=== PATIENT | female | born 1940 ===

== ENCOUNTER 2017-06-09 10:21 | Observation (INO) | payer OTHER ==
--- NOTE | 2017-06-09 11:54 | C.PDOC ---
History Of Present Illness 77 y/o female presents to emergency department with complaint of intermittent chest pain, described as left sided, for the past 4 days. Patient also states she has been having a frontal headache for 4 days. Notes that she was seen at the clinic today for elevated BP and headache, and was sent to the ER for further evaluation. On arrival, patient reports she currently has no pain. Otherwise, denies trauma, fever, rash, SOB, nausea, vomiting, abdominal pain, leg pain or swelling, recent travel. Time Seen by Provider: 06/09/17 11:36 Chief Complaint (Nursing): Chest Pain History Per: Patient History/Exam Limitations: no limitations Onset/Duration Of Symptoms: Days (4) Current Symptoms Are (Timing): Gone Pain Scale Rating Of: 0 Quality: "Pain" Associated Symptoms: denies: Nausea, Diaphoresis Exacerbating Factors: None Recent travel outside of the [place]: No Past Medical History Reviewed: Historical Data, Nursing Documentation, Vital Signs Vital Signs: Last Vital Signs Temp 97.6 F 06/09/17 10:30 Pulse 61 06/09/17 18:44 Resp 20 06/09/17 18:44 BP 143/60 06/09/17 18:44 Pulse Ox 98 06/09/17 18:44 - Medical History PMH: HTN Family History: States: Unknown Family Hx - Social History Hx Tobacco Use: No Hx Alcohol Use: No Hx Substance Use: No - Immunization History Hx Tetanus Toxoid Vaccination: No Hx Influenza Vaccination: No Hx Pneumococcal Vaccination: No Review Of Systems Except As Marked, All Systems Reviewed And Found Negative. Constitutional: Negative for: Fever, Chills ENT: Negative for: Throat Pain Cardiovascular: Positive for: Chest Pain (resolved). Negative for: Palpitations Respiratory: Negative for: Cough, Shortness of Breath, Wheezing Gastrointestinal: Negative for: Nausea, Vomiting, Abdominal Pain Skin: Negative for: Rash Neurological: Positive for: Headache. Negative for: Dizziness Physical Exam - Physical Exam Appears: Non-toxic, No Acute Distress Skin: Normal Color, Warm, Dry, No Rash Head: Atraumatic, Normacephalic Eye(s): bilateral: Normal Inspection, PERRL, EOMI Ear(s): Bilateral: Normal Nose: Normal Oral Mucosa: Moist Chest: Symmetrical, No Tenderness Cardiovascular: Rhythm Regular, No Murmur Respiratory: Normal Breath Sounds, No Rales, No Rhonchi, No Wheezing Gastrointestinal/Abdominal: Soft, No Tenderness, No Guarding, No Rebound Back: Normal Inspection Extremity: Normal ROM, Capillary Refill (< 2 sec.) Neurological/Psych: Oriented x3, Normal Speech, Normal Cognition ED Course And Treatment - Laboratory Results Result Diagrams: 06/09/17 12:22 06/09/17 12:22 ECG: Interpreted By Me ECG Rhythm: Sinus Rhythm ECG Interpretation: Normal Interpretation Of ECG: RBBB Rate From EC (bpm) O2 Sat by Pulse Oximetry: 99 (RA) Pulse Ox Interpretation: Normal - Radiology CXR: Interpreted by Me CXR Interpretation: Yes: No Acute Disease. No: Infiltrates Progress Note: EKG, CxR, bloodwork ordered. Treated with Aspirin 324 mg. Medical Decision Making Medical Decision Making: Case discussed with Dr. Magana, agrees to accept patient for chest pain and rule out ACS to tele-obs. Disposition - Disposition Disposition: HOSPITALIZED Disposition Time: 13:00 Condition: FAIR - Clinical Impression Clinical Impression: Chest pain - PA / MANAGER PROGRAMMING / Resident Statement MD/DO has reviewed & agrees with the documentation as recorded. - Scribe Statement The provider has reviewed the documentation as recorded by the Scribe Bernabe Dougherty All medical record entries made by the Carlos A were at my direction and personally dictated by me. I have reviewed the chart and agree that the record accurately reflects my personal performance of the history, physical exam, medical decision making, and the department course for this patient. I have also personally directed, reviewed, and agree with the discharge instructions and disposition.
[2017-06-09 12:35] LABS: BASO % 0.8 % (0.0-2.0); EOS % 0.4 % (0.0-4.0); HEMATOCRIT 38.5 % (34.0-47.0); LYMPH # 2.1 K/uL (1.0-4.3); LYMPH % 37.7 % (20.0-40.0); MEAN CELL VOLUME 86.6 fL (81.0-99.0); MEAN CORPUSCULAR HEMOGLOBIN 28.9 pg (27.0-31.0); MEAN CORPUSCULAR HGB CONC 33.4 g/dL (33.0-37.0); MEAN PLATELET VOLUME 8.2 fL (7.2-11.7); MONO # 0.5 K/uL (0.0-0.8); MONO % 9.8 % (0.0-10.0); NRBC % 0.4 % (0.0-2.0); RED CELL DISTRIBUTION WIDTH 14.5 % (11.5-14.5); WHITE BLOOD COUNT 5.6 K/uL (4.8-10.8)
--- NOTE | 2017-06-09 12:38 | RAD ---
HISTORY: chest pain COMPARISON: None available. TECHNIQUE: Chest, one view. FINDINGS: LUNGS: Mild biapical pleural thickening. No focal consolidation. Please note that chest x-ray has limited sensitivity for the detection of pulmonary masses. PLEURA: No significant pleural effusion identified. No definite pneumothorax . CARDIOVASCULAR: Heart size appears within normal limits. Atherosclerotic calcifications of the aorta. OSSEOUS STRUCTURES: Degenerative changes. VISUALIZED UPPER ABDOMEN: Unremarkable. OTHER FINDINGS: None. IMPRESSION: Biapical pleural thickening. No focal consolidation, significant pleural effusion, or definite pneumothorax identified.
[2017-06-09 12:44] LABS: CHLORIDE 95 mmol/L (98-107); POTASSIUM 4.1 mmol/L (3.6-5.2); SODIUM 143 mmol/L (132-148)
[2017-06-09 12:47] LABS: ALB/GLOB RATIO 1.3 (1.0-2.1); ALKALINE PHOSPHATASE 66 U/L (38-126); ALT/SGPT 34 U/L (9-52); AST/SGOT 25 U/L (14-36); BLOOD UREA NITROGEN 16 mg/dL (7-17); CARBON DIOXIDE 33 mmol/L (22-30); GFR AFRICAN-AMERICAN > 60; GLUCOSE,RANDOM 104 mg/dL (65-105); TOTAL PROTEIN 8.5 g/dL (6.3-8.3)
[2017-06-09 12:48] LABS: CALCIUM 10.1 mg/dl (8.6-10.4)
--- NOTE | 2017-06-09 14:41 | CP.PCM.HP ---
<Winsome Alamo - Last Filed: 06/09/17 16:25> History of Present Illness - History of Present Illness History of Present Illness: Medicine Note for Dr. Magana CC: headache and chest pain HPI: 77F with PMHx of HTN, HLD, DM presents to the ED after being sent up from the clinic, where she reported chest pain and headache. Patient reports she started to have a headache on which was intermittent, bandlike ( occipital) and it would radiate down her neck. When her headache would get at it 's worst, she would experience sharp like left sided chest pain. The chest pain would last 3-5 minutes without any intervention. Denied fever, chills, headache , SOB, chest pain, abdominal pain, n/v/d/c, or urinary symptoms. PMHx: HTN, HLD, DM PSHx: Meds: HCTZ 25mg PO daily, Potassium 20mg PO daily, crestor and a diabetic medication All: NKDA SHx: Denied any tobacco, ETOH, or illicit drug use FHx: Denied PMD: Dr. Hurtaod Present on Admission - Present on Admission Any Indicators Present on Admission: No Past Patient History - Past Social History Smoking Status: Never Smoked - CARDIAC Hx Hypertension: Yes - ENDOCRINE/METABOLIC Hx Diabetes Mellitus Type 2: Yes - PSYCHIATRIC Hx Substance Use: No - SURGICAL HISTORY Hx Surgeries: Yes Hx Section: Yes - ANESTHESIA Hx Anesthesia: Yes Hx Anesthesia Reactions: No Meds Allergies/Adverse Reactions: Allergies Allergy/AdvReac Type Severity Reaction Status Date / Time No Known Allergies Allergy Verified 06/22/14 09:35 Physical Exam - Constitutional Appears: No Acute Distress - Head Exam Head Exam: NORMAL INSPECTION, NORMOCEPHALIC - Eye Exam Eye Exam: EOMI, Normal appearance, PERRL Pupil Exam: NORMAL ACCOMODATION - ENT Exam ENT Exam: Mucous Membranes Moist - Neck Exam Neck exam: Positive for: Normal Inspection - Respiratory Exam Respiratory Exam: Clear to Auscultation Bilateral, NORMAL BREATHING PATTERN. absent: Decreased Breath Sounds, Wheezes - Cardiovascular Exam Cardiovascular Exam: REGULAR RHYTHM, RRR, +S1, +S2. absent: Diastolic murmur, Systolic Murmur - GI/Abdominal Exam GI & Abdominal Exam: Normal Bowel Sounds, Soft. absent: Distended, Tenderness - Extremities Exam Extremities exam: Positive for: normal inspection, pedal pulses present. Negative for: pedal edema, tenderness - Back Exam Back exam: NORMAL INSPECTION. absent: CVA tenderness (L), CVA tenderness (R) - Neurological Exam Neurological exam: Alert, CN II-XII Intact, Oriented x3 - Skin Skin Exam: Dry, Intact, Normal Color, Warm Results - Vital Signs Recent Vital Signs: Last Vital Signs Temp 97.6 F 06/09/17 10:30 Pulse 53 L 06/09/17 11:48 Resp 20 06/09/17 11:48 BP 164/57 H 06/09/17 11:48 Pulse Ox 99 06/09/17 14:03 - Labs Result Diagrams: 06/09/17 12:22 06/09/17 12:22 Labs: Laboratory Results - last 24 hr 06/09/17 06/09/17 06/09/17 12:22 12:22 12:22 WBC 5.6 RBC 4.44 Hgb 12.9 Hct 38.5 MCV 86.6 MCH 28.9 MCHC 33.4 RDW 14.5 Plt Count 240 MPV 8.2 Neut % (Auto) 51.3 Lymph % (Auto) 37.7 [place] % (Auto) 9.8 Eos % (Auto) 0.4 Baso % (Auto) 0.8 Neut # 2.9 Lymph # 2.1 [place] # 0.5 Eos # 0.0 Baso # 0.0 PT 11.2 INR 1.0 APTT 33 Sodium 143 Potassium 4.1 Chloride 95 L Carbon Dioxide 33 H Anion Gap 19 BUN 16 Creatinine 0.7 Est GFR ( Amer) > 60 Est GFR (Non-Af Amer) > 60 Random Glucose 104 Calcium 10.1 Total Bilirubin 1.0 AST 25 ALT 34 Alkaline Phosphatase 66 Troponin I < 0.0120 Total Protein 8.5 H Albumin 4.8 Globulin 3.7 Albumin/Globulin Ratio 1.3 Assessment & Plan - Assessment and Plan (Free Text) Plan: Chest pain R/O ACS Cardiology consulted -Dr. Spencer- help appreciated Initial EVE negative, EKG: RBBB ECHO 11/2016: LVEF 70%, mild LVD, mild pulm HTN F/U EVE and EKG x2 * ASA 81mg PO daily * HCTZ 25mg PO daily * Norvasc 5mg PO daily Headache * Head CT w/o contrast: No acute intracranial pathology identified. Hx Uncontrolled HTN * ECHO 11/2016: LVEF 70%, mild LVD, mild pulm HTN * Resumed home medication: HCTZ 25mg PO daily --> monitor potassium * Added Norvasc 5mg PO daily Hx DM HGA1C: 6.9 (03/2017) Accuchecks * ISS- low Hx HLD Lipid Panel on 03/2017: T, Chol: 237, LDL 151, HDL 49 * Crestor 5mg PO QHS Prophylactic Measures GI PPX: Protonix 40mg PO daily DVT PPX: Heparin [id number], SCDs Heart Healthy diet w/ carb consistent DW Dr. Izzy Alamo DO, PGY-1 <Deni Magana H - Last Filed: 06/09/17 18:32> Results - Vital Signs Recent Vital Signs: Last Vital Signs Temp 97.6 F 06/09/17 10:30 Pulse 56 L 06/09/17 16:29 Resp 22 06/09/17 16:29 BP 141/54 L 06/09/17 16:29 Pulse Ox 97 06/09/17 16:29 - Labs Result Diagrams: 06/09/17 12:22 06/09/17 12:22 Labs: Laboratory Results - last 24 hr 06/09/17 06/09/17 06/09/17 12:22 12:22 12:22 WBC 5.6 RBC 4.44 Hgb 12.9 Hct 38.5 MCV 86.6 MCH 28.9 MCHC 33.4 RDW 14.5 Plt Count 240 MPV 8.2 Neut % (Auto) 51.3 Lymph % (Auto) 37.7 [place] % (Auto) 9.8 Eos % (Auto) 0.4 Baso % (Auto) 0.8 Neut # 2.9 Lymph # 2.1 [place] # 0.5 Eos # 0.0 Baso # 0.0 PT 11.2 INR 1.0 APTT 33 Sodium 143 Potassium 4.1 Chloride 95 L Carbon Dioxide 33 H Anion Gap 19 BUN 16 Creatinine 0.7 Est GFR ( Amer) > 60 Est GFR (Non-Af Amer) > 60 POC Glucose (mg/dL) Random Glucose 104 Calcium 10.1 Total Bilirubin 1.0 AST 25 ALT 34 Alkaline Phosphatase 66 Troponin I < 0.0120 Total Protein 8.5 H Albumin 4.8 Globulin 3.7 Albumin/Globulin Ratio 1.3 06/09/17 06/09/17 16:54 17:05 WBC RBC Hgb Hct MCV MCH MCHC RDW Plt Count MPV Neut % (Auto) Lymph % (Auto) [place] % (Auto) Eos % (Auto) Baso % (Auto) Neut # Lymph # [place] # Eos # Baso # PT INR APTT Sodium Potassium Chloride Carbon Dioxide Anion Gap BUN Creatinine Est GFR ( Amer) Est GFR (Non-Af Amer) POC Glucose (mg/dL) 191 H 204 H Random Glucose Calcium Total Bilirubin AST ALT Alkaline Phosphatase Troponin I Total Protein Albumin Globulin Albumin/Globulin Ratio Attending/Attestation - Attestation I have personally seen and examined this patient.: Yes I have fully participated in the care of the patient.: Yes I have reviewed all pertinent clinical information: Yes Notes (Text): 06/09/17 18:27 Medical Attending: Patient was seen and examined by me. Agree with the above note by the resident. The patient was reporting chest pain, however also of note is that she ran out of her medication due to cost and has been reporting headaches as well. It might be that she is having episodes of hypertensive urgency that are causing these headaches as well as chest pain. Will check additional troponins, also restart BP medications as well. There is a LBBB om EKG, however when compared to an old EKG she has had this for several years now. Also because of the retrosternal like complaints and also the elevated BP readings, will also check a CT of the chest with contrast to assess for potential anursym as well. thank you Deni Magana
--- NOTE | 2017-06-09 16:11 | CT ---
PROCEDURE: CT HEAD WITHOUT CONTRAST. HISTORY: headache x 4 days COMPARISON: Noncontrast head CT performed 10/25/15 TECHNIQUE: Axial computed tomography images were obtained through the head/brain without intravenous contrast. Radiation dose: Total exam DLP = 914.41 mGy-cm. This CT exam was performed using one or more of the following dose reduction techniques: Automated exposure control, adjustment of the mA and/or kV according to patient size, and/or use of iterative reconstruction technique. FINDINGS: HEMORRHAGE: No intracranial hemorrhage. BRAIN: No mass effect or edema. Intracranial atherosclerosis. Scattered periventricular and subcortical white matter hypodensities, which are nonspecific, but often seen with chronic microvascular ischemic disease. Please note that MRI with diffusion imaging is more sensitive in the detection of acute ischemic event. VENTRICLES: No hydrocephalus. CALVARIUM: Unremarkable. PARANASAL SINUSES: Unremarkable as visualized. No significant inflammatory changes. MASTOID AIR CELLS: Unremarkable as visualized. No inflammatory changes. OTHER FINDINGS: None. IMPRESSION: No acute intracranial pathology identified.
[2017-06-09] MEDS: (Novolin R) Insulin Human Regular 100 units/ml vial SC SCH ×2 (17:08→22:35)
[2017-06-09] MEDS ORDERED: (Novolin R) Insulin Human Regular 100 units/ml vial ONE (18:34)
[2017-06-09 21:13] VITALS: RESP 20
[2017-06-09] MEDS ORDERED: Rosuvastatin Calcium 2.5 mg Tab PO SCH (22:00)
[2017-06-10 06:27] LABS: BASO % 0.5 % (0.0-2.0); EOS % 0.1 % (0.0-4.0); HEMATOCRIT 35.9 % (34.0-47.0); LYMPH # 2.2 K/uL (1.0-4.3); LYMPH % 51.7 % (20.0-40.0); MEAN CELL VOLUME 86.1 fL (81.0-99.0); MEAN CORPUSCULAR HGB CONC 33.6 g/dL (33.0-37.0); MEAN PLATELET VOLUME 7.8 fL (7.2-11.7); MONO # 0.5 K/uL (0.0-0.8); MONO % 11.9 % (0.0-10.0); NRBC % 0.1 % (0.0-2.0); RED CELL DISTRIBUTION WIDTH 14.3 % (11.5-14.5); WHITE BLOOD COUNT 4.3 K/uL (4.8-10.8)
[2017-06-10 06:31] LABS: CHLORIDE 95 mmol/L (98-107); POTASSIUM 3.6 mmol/L (3.6-5.2); SODIUM 142 mmol/L (132-148)
[2017-06-10 06:33] LABS: ALB/GLOB RATIO 1.1 (1.0-2.1); AST/SGOT 25 U/L (14-36); BILIRUBIN,TOTAL 0.8 mg/dL (0.2-1.3); BLOOD UREA NITROGEN 14 mg/dL (7-17); CARBON DIOXIDE 33 mmol/L (22-30); CHOLESTEROL 162 mg/dL (0-199); GFR AFRICAN-AMERICAN > 60; TOTAL PROTEIN 8.3 g/dL (6.3-8.3)
[2017-06-10 06:34] LABS: ALKALINE PHOSPHATASE 56 U/L (38-126); ALT/SGPT 29 U/L (9-52); CALCIUM 9.9 mg/dl (8.6-10.4); GLUCOSE,RANDOM 124 mg/dL (65-105); MAGNESIUM 1.8 mg/dL (1.6-2.3); PHOSPHOROUS 4.9 mg/dL (2.5-4.5)
[2017-06-10] MEDS: (Novolin R) Insulin Human Regular 100 units/ml vial SC SCH ×2 (07:50→12:20)
[2017-06-10] MEDS ORDERED: Aminophylline 25 mg/ml Inj ONE (08:08)
[2017-06-10] MEDS ORDERED: Pneumococcal 23-Valent Vaccine IM ONE ×2 (10:00→17:09)
[2017-06-10] MEDS ORDERED: Pantoprazole 40 mg EC Tab PO SCH (10:00)
[2017-06-10] MEDS ORDERED: Influenza Vaccine 60 mcg/0.5 mL SYR (4YR UP) IM ONE ×2 (10:00→17:08)
--- NOTE | 2017-06-10 13:47 | CP.PCM.CON ---
History of Present Illness - History of Present Illness History of Present Illness: 77 y/o female presents to emergency department with complaint of intermittent chest pain, described as left sided, for the past 4 days. Patient also states she has been having a frontal headache for 4 days. Notes that she was seen at the clinic for elevated BP and headache, and was sent to the ER for further evaluation. On arrival, patient reports she currently has no pain. Otherwise, denies trauma, fever, rash, SOB, nausea, vomiting, abdominal pain, leg pain or swelling, recent travel. Review of Systems - Constitutional Constitutional: As Per HPI, Headache. absent: Anorexia, Chills, Daytime Sleepiness, Excessive Sweating, Fatigue, Fever, Frequent Falls, Increased Appetite, Lethargy, Malaise, Night Sweats, Snoring, Sleep Apnea, Weight Gain, Weight Loss, Weakness, Other - EENT Eyes: As Per HPI. absent: Blind Spots, Blurred Vision, Change in Vision, Decreased Night Vision, Diplopia, Discharge, Dry Eye, Exophthalmos, Floaters, Irritation, Itchy Eyes, Loss of Peripheral Vision, Pain, Photophobia, Requires Corrective Lenses, Sees Flashes, Spots in Vision, Tunnel Vision, Other Visual Disturbances, Loss of Vision, Other Ears: As Per HPI. absent: Decreased Hearing, Ear Discharge, Ear Pain, Tinnitus , Abnormal Hearing, Disequilibrium, Dizziness, Other Nose/Mouth/Throat: As Per HPI. absent: Epistaxis, Nasal Congestion, Nasal Discharge, Nasal Obstruction, Nasal Trauma, Nose Pain, Post Nasal Drip, Sinus Pain, Sinus Pressure, Bleeding Gums, Change in Voice, Dental Pain, Dry Mouth, Dysphagia, Halitosis, Hoarsness, Lip Swelling, Mouth Lesions, Mouth Pain, Odynophagia, Sore Throat, Throat Swelling, Tongue Swelling, Facial Pain, Neck Pain, Neck Mass, Other - Breasts Breasts: As Per HPI. absent: Change in Shape, Mass, Pain, Nipple Discharge, Nipple Inversion, Skin Changes, Swelling, Other - Cardiovascular Cardiovascular: As Per HPI, Chest Pain. absent: Acrocyanosis, Chest Pain at Rest, Chest Pain with Activity, Claudication, Diaphoresis, Dyspnea, Dyspnea on Exertion, Edema, Irregular Heart Rhythm, Pain Radiating to Arm/Neck/Jaw, Leg Edema, Leg Ulcers, Lightheadedness, Orthopnea, Palpitations, Paroxysmal Nocturnal Dyspnea, Pedal Edema, Radiating Pain, Rapid Heart Rate, Slow Heart Rate, Syncope, Other - Respiratory Respiratory: As Per HPI. absent: Cough, Dyspnea, Hemoptysis, Dyspnea on Exertion, Wheezing, Snoring, Stridor, Pain on Inspiration, Chest Congestion, Excessive Mucous Production, Change in Mucous Color, Pain with Coughing, Other - Gastrointestinal Gastrointestinal: As Per HPI. absent: Abdominal Pain, Belching, Bloating, Change in Bowel Habits, Change in Stool Character, Coffee Ground Emesis, Constipation, Cramping, Diarrhea, Dyspepsia, Dysphagia, Early Satiety, Excessive Flatus, Fecal Incontinence, Heartburn, Hematemesis, Hematochezia, Loose Stools, Melena, Nausea, Odynophagia, Temesmus, Vomiting, Other - Genitourinary Genitourinary: As Per HPI. absent: Change in Urinary Stream, Difficulty Urinating, Dysuria, Flank Pain, Hematuria, Pyuria, Nocturia, Urinary Incontinence, Urinary Frequency, Urinary Hesitance, Urinary Urgency, Voiding Freq/Small Amts, Freq UTI, Hx Renal/Bladder Calculi, Hx /Renal Surgery, Bladder Distension, Other - Reproductive: Female Reproductive:Female: absent: As Per HPI, Amenorrhea, Amenorrhea/ Control, Currently Menstual, Cycle <21 Days, Cycle >35 Days, Cycle Variable, Menses 1-7 Days, Menses >/= 8 Days, Menses Variable, Cycle > 4 Weeks Between, No Menses for 6 Months, Heavy Menses, Light Menses, Normal Menses, Spotting Between Cycles , S/P Hysterectomy, Menopausal, Post Menopausal, Premenarche, Abnormal Vaginal Bleeding, Dysmenorrhea, Dyspareunia, Genital Lesions, Genital Pruritis, Pelvic Pain, Prolapse Symptoms, Sexual Dysfunction, Vaginal Discharge, Vaginal Dryness , Vaginal Odor, Vaginal Pruritis, Other - Menstruation Menstruation: As Per HPI. absent: Amenorrhea, Amenorrhea/ Control, Currently Menstual, Cycle <21 Days, Cycle >35 Days, Cycle Variable, Menses 1-7 Days, Menses >/= 8 Days, Menses Variable, Cycle > 4 Weeks Between, No Menses for 6 Months, Heavy Menses, Light Menses, Normal Menses, Spotting Between Cycles , S/P Hysterectomy, Menopausal, Post Menopausal, Premenarche, Abnormal Vaginal Bleeding, Dysmenorrhea, Other - Musculoskeletal Musculoskeletal: As Per HPI. absent: Abnormal Gait, Arthralgias, Atrophy, Back Pain, Deformity, Joint Swelling, Limited Range of Motion, Loss of Height, Muscle Cramps, Muscle Weakness, Myalgias, Neck Pain, Numbness, Radiating Pain into Limb, Stiffness, Tingling, Other - Integumentary Integumentary: As Per HPI. absent: Acne, Alopecia, Bleeding Lesions, Change in Hair, Change in Nails, Change in Pigmentation, Changing Lesions, Dry Skin, Erythema, Furuncle, Hirsutism, Lesions, New Lesions, Non-Healing Lesions, Photosensitivity, Pruritus, Rash, Skin Pain, Skin Ulcer, Sores, Striae, Swelling , Unusual Bruising, Wounds, Jaundice, Other - Neurological Neurological: As Per HPI. absent: Abnormal Gait, Abnormal Hearing, Abnormal Movements, Abnormal Speech, Behavioral Changes, Burning Sensations, Confusion, Convulsions, Disequilibrium, Dizziness, Numbness, Focal Weakness, Frequent Falls , Headaches, Lack of Coordination, Loss of Vision, Memory Loss, Paresthesias, Radicular Pain, Restless Legs, Sensory Deficit, Syncope, Tingling, Tremor, Vertigo, Weakness, Other Visual Disturbances, Other - Psychiatric Psychiatric: As Per HPI. absent: Abnormal Sleep Pattern, Anhedonia, Anxiety, Auditory Hallucinations, Behavioral Changes, Change in Appetite, Change in Libido, Confusion, Depression, Difficulty Concentrating, Hallucinations, Homicidal Ideation, Hopelessness, Irritability, Memory Loss, Mood Swings, Panic Attacks, Paranoia, Suicidal Ideation, Visual Hallucinations, Tactile Hallucinations, Other - Endocrine Endocrine: As Per HPI. absent: Change in Body Appearance, Change in Libido, Cold Intolorance, Deepening of Voice, Excessive Sweating, Fatigue, Flushing, Heat Intolorance, Increase in Ring/Shoe/Hat Size, Palpitations, Polydipsia, Polyphagia, Polyuria, Other - Hematologic/Lymphatic Hematologic: absent: As Per HPI, Easy Bleeding, Easy Bruising, Lymphadenopathy, Other Past Patient History - Past Medical History & Family History Past Medical History?: Yes - Past Social History Smoking Status: Never Smoked Chewing Tobacco Use: No Cigar Use: No Alcohol: None Drugs: Denies Home Situation {Lives}: With Family Domestic Violence: Negative - CARDIAC Hx Hypertension: Yes - PULMONARY Hx Respiratory Disorders: No - NEUROLOGICAL Hx Neurological Disorder: No - HEENT Hx HEENT Problems: No - RENAL Hx Chronic Kidney Disease: No - ENDOCRINE/METABOLIC Hx Endocrine Disorders: Yes Hx Diabetes Mellitus Type 2: Yes - HEMATOLOGICAL/ONCOLOGICAL Hx Blood Disorders: No - MUSCULOSKELETAL/RHEUMATOLOGICAL Hx Falls: No - PSYCHIATRIC Hx Substance Use: No - SURGICAL HISTORY Hx Surgeries: Yes Hx Section: Yes - ANESTHESIA Hx Anesthesia: Yes Hx Anesthesia Reactions: No Meds Allergies/Adverse Reactions: Allergies Allergy/AdvReac Type Severity Reaction Status Date / Time No Known Allergies Allergy Verified 06/22/14 09:35 - Medications Medications: Current Medications Acetaminophen (Tylenol 325mg Tab) 650 mg PO Q6 PRN PRN Reason: Headache Last Admin: 06/09/17 21:19 Dose: 650 mg Amlodipine Besylate (Norvasc) 10 mg PO DAILY [facility] Last Admin: 06/10/17 10:26 Dose: 10 mg Aspirin (Aspirin Chewable) 81 mg PO DAILY [facility] Last Admin: 06/10/17 10:27 Dose: 81 mg Heparin Sodium (Porcine) (Heparin) 5,000 units SC Q12 [facility] Last Admin: 06/10/17 10:26 Dose: 5,000 units Hydrochlorothiazide (Hydrodiuril) 25 mg PO DAILY [facility] Last Admin: 06/10/17 10:26 Dose: 25 mg Insulin Human Regular (Novolin R) 0 unit SC ACHS [facility] PRN Reason: Protocol Last Admin: 06/10/17 12:20 Dose: Not Given Pantoprazole Sodium (Protonix Ec Tab) 40 mg PO DAILY [facility] Last Admin: 06/10/17 10:26 Dose: 40 mg Rosuvastatin Calcium (Crestor) 5 mg PO HS [facility] Last Admin: 06/09/17 22:02 Dose: 5 mg Physical Exam - Constitutional Appears: Well - Head Exam Head Exam: ATRAUMATIC, NORMAL INSPECTION, NORMOCEPHALIC - Eye Exam Eye Exam: EOMI, Normal appearance, PERRL Pupil Exam: NORMAL ACCOMODATION, PERRL - ENT Exam ENT Exam: Mucous Membranes Moist, Normal Exam - Neck Exam Neck exam: Positive for: Normal Inspection - Respiratory Exam Respiratory Exam: Clear to Auscultation Bilateral, NORMAL BREATHING PATTERN. absent: Accessory Muscle Use, Chest Wall Tenderness, Decreased Breath Sounds, Prolonged Expiratory Phase, Rales, Rhonchi, Wheezes, Respiratory Distress, Stridor - Cardiovascular Exam Cardiovascular Exam: REGULAR RHYTHM, +S1, +S2, Systolic Murmur. absent: Bradycardia, Tachycardia, Clicks, Diastolic murmur, Gallop, Irregular Rhythm, JVD, RRR, Rubs, +S4 - GI/Abdominal Exam GI & Abdominal Exam: Normal Bowel Sounds, Soft. absent: Bruit, Diminished Bowel Sounds, Distended, Firm, Guarding, Hernia, Hyperactive Bowel Sounds, Hypoactive Bowel Sounds, Mass, Organomegaly, Pulsatile Mass, Rebound, Rigid, Tenderness - Rectal Exam Rectal Exam: Deferred. absent: Black Stool, Bloody Stool, Hemorrhoids, Fecal Impaction - Extremities Exam Extremities exam: Positive for: normal inspection. Negative for: calf tenderness, full ROM, joint swelling, normal capillary refill, pedal edema, tenderness, pedal pulses present - Back Exam Back exam: NORMAL INSPECTION. absent: CVA tenderness (L), CVA tenderness (R), FULL ROM, muscle spasm, paraspinal tenderness, rash noted, tenderness, vertebral tenderness - Neurological Exam Neurological exam: Alert, CN II-XII Intact, Oriented x3, Reflexes Normal - Psychiatric Exam Psychiatric exam: Normal Affect, Normal Mood - Skin Skin Exam: Dry, Intact, Normal Color, Warm Results - Vital Signs Recent Vital Signs: Last Vital Signs Temp 97.9 F 06/10/17 08:00 Pulse 75 06/10/17 12:48 Resp 20 06/10/17 08:00 BP 120/69 06/10/17 08:00 Pulse Ox 96 06/10/17 12:48 - Labs Result Diagrams: 06/10/17 06:14 06/10/17 06:14 Labs: Laboratory Results - last 24 hr 06/09/17 06/09/17 06/09/17 16:54 17:05 20:24 WBC RBC Hgb Hct MCV MCH MCHC RDW Plt Count MPV Neut % (Auto) Lymph % (Auto) [place] % (Auto) Eos % (Auto) Baso % (Auto) Neut # Lymph # [place] # Eos # Baso # Sodium Potassium Chloride Carbon Dioxide Anion Gap BUN Creatinine Est GFR ( Amer) Est GFR (Non-Af Amer) POC Glucose (mg/dL) 191 H 204 H Random Glucose Calcium Phosphorus Magnesium Total Bilirubin AST ALT Alkaline Phosphatase Total Creatine Kinase 52 CK-MB (Mass) 0.90 Troponin I, Quant < 0.0120 Total Protein Albumin Globulin Albumin/Globulin Ratio Triglycerides Cholesterol LDL Cholesterol Direct HDL Cholesterol 06/09/17 06/10/17 06/10/17 22:30 06:14 06:14 WBC 4.3 L RBC 4.17 Hgb 12.1 Hct 35.9 MCV 86.1 MCH 29.0 MCHC 33.6 RDW 14.3 Plt Count 231 MPV 7.8 Neut % (Auto) 35.8 L Lymph % (Auto) 51.7 H [place] % (Auto) 11.9 H Eos % (Auto) 0.1 Baso % (Auto) 0.5 Neut # 1.6 L Lymph # 2.2 [place] # 0.5 Eos # 0.0 Baso # 0.0 Sodium 142 Potassium 3.6 Chloride 95 L Carbon Dioxide 33 H Anion Gap 18 BUN 14 Creatinine 0.8 Est GFR ( Amer) > 60 Est GFR (Non-Af Amer) > 60 POC Glucose (mg/dL) 87 Random Glucose 124 H Calcium 9.9 Phosphorus 4.9 H Magnesium 1.8 Total Bilirubin 0.8 AST 25 ALT 29 Alkaline Phosphatase 56 Total Creatine Kinase CK-MB (Mass) Troponin I, Quant Total Protein 8.3 Albumin 4.3 Globulin 4.0 H Albumin/Globulin Ratio 1.1 Triglycerides 95 D Cholesterol 162 LDL Cholesterol Direct 90 HDL Cholesterol 50 06/10/17 06/10/17 06:31 11:30 WBC RBC Hgb Hct MCV MCH MCHC RDW Plt Count MPV Neut % (Auto) Lymph % (Auto) [place] % (Auto) Eos % (Auto) Baso % (Auto) Neut # Lymph # [place] # Eos # Baso # Sodium Potassium Chloride Carbon Dioxide Anion Gap BUN Creatinine Est GFR ( Amer) Est GFR (Non-Af Amer) POC Glucose (mg/dL) 130 H 146 H Random Glucose Calcium Phosphorus Magnesium Total Bilirubin AST ALT Alkaline Phosphatase Total Creatine Kinase CK-MB (Mass) Troponin I, Quant Total Protein Albumin Globulin Albumin/Globulin Ratio Triglycerides Cholesterol LDL Cholesterol Direct HDL Cholesterol - EKG Data EKG Interpreted by: Myself EKG shows normal: Sinus rhythm Rate: Normal - Impressions Impression: [id number] Assessment & Plan (1) Diabetes Status: Acute (2) Dyslipidemia Status: Acute (3) Chest pain Status: Acute (4) Headache Status: Acute - Assessment and Plan (Free Text) Plan: PT HAD ECHO AND NUC ST. ECHO NML EF NUC NML WOULD CONSIDER ALTERNATE ETIOLOGY FOR CP CONTINUE AMLODIPINE 10MG DAILY. D/C ASA AND HCTZ
--- NOTE | 2017-06-10 14:17 | CP.PCM.DIS ---
<[place] - Last Filed: 06/10/17 14:13> Provider - Provider Date of Admission: 06/09/17 14:15 Attending physician: Deni Magana DO Consults: Cardio: Dr. Spencer Time Spent in preparation of Discharge (in minutes): 55 Hospital Course - Lab Results Lab Results: Most Recent Lab Values WBC 4.3 K/uL (4.8-10.8) L 06/10/17 06:14 RBC 4.17 Mil/uL (3.80-5.20) 06/10/17 06:14 Hgb 12.1 g/dL (11.0-16.0) 06/10/17 06:14 Hct 35.9 % (34.0-47.0) 06/10/17 06:14 MCV 86.1 fL (81.0-99.0) 06/10/17 06:14 MCH 29.0 pg (27.0-31.0) 06/10/17 06:14 MCHC 33.6 g/dL (33.0-37.0) 06/10/17 06:14 RDW 14.3 % (11.5-14.5) 06/10/17 06:14 Plt Count 231 K/uL (130-400) 06/10/17 06:14 MPV 7.8 fL (7.2-11.7) 06/10/17 06:14 Neut % (Auto) 35.8 % (50.0-75.0) L 06/10/17 06:14 Lymph % (Auto) 51.7 % (20.0-40.0) H 06/10/17 06:14 [place] % (Auto) 11.9 % (0.0-10.0) H 06/10/17 06:14 Eos % (Auto) 0.1 % (0.0-4.0) 06/10/17 06:14 Baso % (Auto) 0.5 % (0.0-2.0) 06/10/17 06:14 Neut # 1.6 K/uL (1.8-7.0) L 06/10/17 06:14 Lymph # 2.2 K/uL (1.0-4.3) 06/10/17 06:14 [place] # 0.5 K/uL (0.0-0.8) 06/10/17 06:14 Eos # 0.0 K/uL (0.0-0.7) 06/10/17 06:14 Baso # 0.0 K/uL (0.0-0.2) 06/10/17 06:14 PT 11.2 SECONDS (9.7-12.2) 06/09/17 12:22 INR 1.0 06/09/17 12:22 APTT 33 SECONDS (21-34) 06/09/17 12:22 Sodium 142 mmol/L (132-148) 06/10/17 06:14 Potassium 3.6 mmol/L (3.6-5.2) 06/10/17 06:14 Chloride 95 mmol/L (98-107) L 06/10/17 06:14 Carbon Dioxide 33 mmol/L (22-30) H 06/10/17 06:14 Anion Gap 18 (10-20) 06/10/17 06:14 BUN 14 mg/dL (7-17) 06/10/17 06:14 Creatinine 0.8 MG/DL (0.7-1.2) 06/10/17 06:14 Est GFR ( Amer) > 60 06/10/17 06:14 Est GFR (Non-Af Amer) > 60 06/10/17 06:14 POC Glucose (mg/dL) 146 mg/dL (65-110) H 06/10/17 11:30 Random Glucose 124 mg/dL (65-105) H 06/10/17 06:14 Calcium 9.9 mg/dl (8.6-10.4) 06/10/17 06:14 Phosphorus 4.9 mg/dL (2.5-4.5) H 06/10/17 06:14 Magnesium 1.8 mg/dL (1.6-2.3) 06/10/17 06:14 Total Bilirubin 0.8 mg/dL (0.2-1.3) 06/10/17 06:14 AST 25 U/L (14-36) 06/10/17 06:14 ALT 29 U/L (9-52) 06/10/17 06:14 Alkaline Phosphatase 56 U/L (38-126) 06/10/17 06:14 Total Creatine Kinase 52 U/L (30-135) 06/09/17 20:24 CK-MB (Mass) 0.90 ng/mL (0.0-3.38) 06/09/17 20:24 Troponin I < 0.0120 ng/mL (0.00-0.120) 06/09/17 12:22 Troponin I, Quant < 0.0120 ng/mL (0.00-0.120) 06/09/17 20:24 Total Protein 8.3 g/dL (6.3-8.3) 06/10/17 06:14 Albumin 4.3 g/dL (3.5-5.0) 06/10/17 06:14 Globulin 4.0 gm/dL (2.2-3.9) H 06/10/17 06:14 Albumin/Globulin Ratio 1.1 (1.0-2.1) 06/10/17 06:14 Triglycerides 95 mg/dL (0-149) D 06/10/17 06:14 Cholesterol 162 mg/dL (0-199) 06/10/17 06:14 LDL Cholesterol Direct 90 mg/dL (0-129) 06/10/17 06:14 HDL Cholesterol 50 mg/dL (30-70) 06/10/17 06:14 - Hospital Course Hospital Course: Upon Admission: CC: headache and chest pain HPI: 77F with PMHx of HTN, HLD, DM presents to the ED after being sent up from the clinic, where she reported chest pain and headache. Patient reports she started to have a headache on which was intermittent, bandlike ( occipital) and it would radiate down her neck. When her headache would get at it 's worst, she would experience sharp like left sided chest pain. The chest pain would last 3-5 minutes without any intervention. Denied fever, chills, headache , SOB, chest pain, abdominal pain, n/v/d/c, or urinary symptoms. PMHx: HTN, HLD, DM PSHx: Meds: HCTZ 25mg PO daily, Potassium 20mg PO daily, crestor and a diabetic medication All: NKDA SHx: Denied any tobacco, ETOH, or illicit drug use FHx: Denied PMD: Dr. Hurtado Throughout the Hospital Course: Patient was admitted for chest pain R/O ACS. Cardiology Dr. Spencer was consulted. ECHO and Nuclear study was done - normal. Patient is to continue Norvasc 10-mg PO daily. DC HCTZ and ASA. Etiology unlikely cardiac in nature, recommend patient to take ppi for GERD like symptoms. Chest pain R/O ACS Cardiology consulted -Dr. Spencer- help appreciated Initial EVE negative, EKG: RBBB ECHO 11/2016: LVEF 70%, mild LVD, mild pulm HTN F/U EVE and EKG x2 * ASA 81mg PO daily * HCTZ 25mg PO daily * Norvasc 5mg PO daily Headache * Head CT w/o contrast: No acute intracranial pathology identified. Hx Uncontrolled HTN * ECHO 11/2016: LVEF 70%, mild LVD, mild pulm HTN * Resumed home medication: HCTZ 25mg PO daily --> monitor potassium * Added Norvasc 5mg PO daily Hx DM HGA1C: 6.9 (03/2017) Accuchecks * ISS- low Hx HLD Lipid Panel on 03/2017: T, Chol: 237, LDL 151, HDL 49 * Crestor 5mg PO QHS This is a brief summary of the patient's hospital course, please review EMR for full record. Discharge Exam - Head Exam Head Exam: ATRAUMATIC, NORMAL INSPECTION, NORMOCEPHALIC - Additional Findings Additional findings: - Constitutional Appears: No Acute Distress - Head Exam Head Exam: NORMAL INSPECTION, NORMOCEPHALIC - Eye Exam Eye Exam: EOMI, Normal appearance, PERRL Pupil Exam: NORMAL ACCOMODATION - ENT Exam ENT Exam: Mucous Membranes Moist - Neck Exam Neck exam: Positive for: Normal Inspection - Respiratory Exam Respiratory Exam: Clear to Auscultation Bilateral, NORMAL BREATHING PATTERN. absent: Decreased Breath Sounds, Wheezes - Cardiovascular Exam Cardiovascular Exam: REGULAR RHYTHM, RRR, +S1, +S2. absent: Diastolic murmur, Systolic Murmur - GI/Abdominal Exam GI & Abdominal Exam: Normal Bowel Sounds, Soft. absent: Distended, Tenderness - Extremities Exam Extremities exam: Positive for: normal inspection, pedal pulses present. Negative for: pedal edema, tenderness - Back Exam Back exam: NORMAL INSPECTION. absent: CVA tenderness (L), CVA tenderness (R) - Neurological Exam Neurological exam: Alert, CN II-XII Intact, Oriented x3 - Skin Skin Exam: Dry, Intact, Normal Color, Warm Discharge Plan - Discharge Medications Prescriptions: amLODIPine [Norvasc] 10 mg PO DAILY #30 tab Pantoprazole [Protonix EC Tab] 40 mg PO DAILY #30 ect Rosuvastatin Calcium [Crestor] 5 mg PO HS #30 tab - Follow Up Plan Condition: GOOD Disposition: HOME/ ROUTINE Instructions: Amlodipine (By mouth), Pantoprazole (By mouth), Rosuvastatin (By mouth), Angina (DC), Chronic Hypertension (DC) Additional Instructions: Patient is to continue taking NORVASC 10mg by mouth DAILY (for your blood pressure), Crestor 5mg by mouth at night every night for your cholestorol, and Protonix 40mg by mouth daily to help with your gastritis, and please continue to take your medication for your diabetes. Please make an appointment within 1 week for the Clinic. Once at the clinic, ask for a refferal for cardiology so you can follow up with a Director Of Student Services. Please return to the emergency room if your symptoms worsen or return. El paciente debe continuar tomando NORVASC 10mg por la boca DIARIAMENTE (para vitale presin arterial), Crestor 5mg por la boca cada noche por vitale colestorol, y Protonix 40mg por la boca diariamente para ayudar con vitale gastritis, y por favor contine tomando vitale medicamento para vitale diabetes. Por favor, gabe muriel abdirahman dentro de 1 semana para la Clnica. Muriel vez en la clnica, pida un refferal para la cardiologa para que pueda hacer un seguimiento con un cardilogo. Por favor regrese a la joy de emergencias si patricia sntomas empeoran o regresan. Referrals: [facility] at [facility] [Outside] <Deni Magana - Last Filed: 06/10/17 14:51> Provider - Provider Date of Admission: 06/09/17 14:15 Attending physician: Deni Magana, DO Hospital Course - Lab Results Lab Results: Most Recent Lab Values WBC 4.3 K/uL (4.8-10.8) L 06/10/17 06:14 RBC 4.17 Mil/uL (3.80-5.20) 06/10/17 06:14 Hgb 12.1 g/dL (11.0-16.0) 06/10/17 06:14 Hct 35.9 % (34.0-47.0) 06/10/17 06:14 MCV 86.1 fL (81.0-99.0) 06/10/17 06:14 MCH 29.0 pg (27.0-31.0) 06/10/17 06:14 MCHC 33.6 g/dL (33.0-37.0) 06/10/17 06:14 RDW 14.3 % (11.5-14.5) 06/10/17 06:14 Plt Count 231 K/uL (130-400) 06/10/17 06:14 MPV 7.8 fL (7.2-11.7) 06/10/17 06:14 Neut % (Auto) 35.8 % (50.0-75.0) L 06/10/17 06:14 Lymph % (Auto) 51.7 % (20.0-40.0) H 06/10/17 06:14 [place] % (Auto) 11.9 % (0.0-10.0) H 06/10/17 06:14 Eos % (Auto) 0.1 % (0.0-4.0) 06/10/17 06:14 Baso % (Auto) 0.5 % (0.0-2.0) 06/10/17 06:14 Neut # 1.6 K/uL (1.8-7.0) L 06/10/17 06:14 Lymph # 2.2 K/uL (1.0-4.3) 06/10/17 06:14 [place] # 0.5 K/uL (0.0-0.8) 06/10/17 06:14 Eos # 0.0 K/uL (0.0-0.7) 06/10/17 06:14 Baso # 0.0 K/uL (0.0-0.2) 06/10/17 06:14 PT 11.2 SECONDS (9.7-12.2) 06/09/17 12:22 INR 1.0 06/09/17 12:22 APTT 33 SECONDS (21-34) 06/09/17 12:22 Sodium 142 mmol/L (132-148) 06/10/17 06:14 Potassium 3.6 mmol/L (3.6-5.2) 06/10/17 06:14 Chloride 95 mmol/L (98-107) L 06/10/17 06:14 Carbon Dioxide 33 mmol/L (22-30) H 06/10/17 06:14 Anion Gap 18 (10-20) 06/10/17 06:14 BUN 14 mg/dL (7-17) 06/10/17 06:14 Creatinine 0.8 MG/DL (0.7-1.2) 06/10/17 06:14 Est GFR ( Amer) > 60 06/10/17 06:14 Est GFR (Non-Af Amer) > 60 06/10/17 06:14 POC Glucose (mg/dL) 146 mg/dL (65-110) H 06/10/17 11:30 Random Glucose 124 mg/dL (65-105) H 06/10/17 06:14 Calcium 9.9 mg/dl (8.6-10.4) 06/10/17 06:14 Phosphorus 4.9 mg/dL (2.5-4.5) H 06/10/17 06:14 Magnesium 1.8 mg/dL (1.6-2.3) 06/10/17 06:14 Total Bilirubin 0.8 mg/dL (0.2-1.3) 06/10/17 06:14 AST 25 U/L (14-36) 06/10/17 06:14 ALT 29 U/L (9-52) 06/10/17 06:14 Alkaline Phosphatase 56 U/L (38-126) 06/10/17 06:14 Total Creatine Kinase 52 U/L (30-135) 06/09/17 20:24 CK-MB (Mass) 0.90 ng/mL (0.0-3.38) 06/09/17 20:24 Troponin I < 0.0120 ng/mL (0.00-0.120) 06/09/17 12:22 Troponin I, Quant < 0.0120 ng/mL (0.00-0.120) 06/09/17 20:24 Total Protein 8.3 g/dL (6.3-8.3) 06/10/17 06:14 Albumin 4.3 g/dL (3.5-5.0) 06/10/17 06:14 Globulin 4.0 gm/dL (2.2-3.9) H 06/10/17 06:14 Albumin/Globulin Ratio 1.1 (1.0-2.1) 06/10/17 06:14 Triglycerides 95 mg/dL (0-149) D 06/10/17 06:14 Cholesterol 162 mg/dL (0-199) 06/10/17 06:14 LDL Cholesterol Direct 90 mg/dL (0-129) 06/10/17 06:14 HDL Cholesterol 50 mg/dL (30-70) 06/10/17 06:14 Attending/Attestation - Attestation I have personally seen and examined this patient.: Yes I have fully participated in the care of the patient.: Yes I have reviewed all pertinent clinical information, including history, physical exam and plan: Yes Notes (Text): Medical Attending: Patient was seen and examined by me, agrees the above note by manager of medical. Her family members were present at bedside as well. The patient was okay with this. Today when we saw her she reported not having any chest pain, she denied having shortness of breath, denied having palpitations, denied having abdominal pain As mentioned previously we are concerned about the patient's blood pressure not being well controlled. When she first came in she had systolic numbers in the 180s. We suspect that these were related to the headaches as well as chest pressure the patient was reporting. Since then she's had 3 negative cardiac enzymes, she was also evaluated by cardiology and had a stress test done results of which were negative. Per cardiology the patient will be stopped taking hydrochlorothiazide and start taking Norvasc 10. thank you Deni Magana
[2017-06-10 15:26] VITALS: BP 128/78; PULSE 71; TEMP 97.8; O2SAT 98
--- NOTE | 2017-06-11 11:59 | CARD ---
APPROVED REPORT EKG Measurement Heart [id number] <Conclusion> Normal sinus rhythm Possible Left atrial enlargement Right bundle branch block Abnormal ECG
--- NOTE | 2017-06-11 12:21 | CARD ---
APPROVED REPORT EXAM: Two-dimensional and M-mode echocardiogram with Doppler and color Doppler. Other Information Quality : GoodRhythm : NSR INDICATION Chest Pain RISK FACTORS Hypertension Hyperlipidemia Diabetes 2D DIMENSIONS IVSd0.8 (0.7-1.1cm)LVDd3.9 (3.9-5.9cm) PWd0.9 (0.7-1.1cm)LVDs2.3 (2.5-4.0cm) FS (%) 39.8 %LVEF (%)71.1 (>50%) M-Mode DIMENSIONS Left Atrium (MM)3.79 (2.5-4.0cm)Aortic Root2.27 (2.2-3.7cm) Aortic Cusp Exc.1.45 (1.5-2.0cm) Mitral Valve MV E Snzpxuqs33.5cm/sMV A Vhrkkrsw78.0cm/sE/A ratio0.6 TDI E/Lateral E'0.0E/Medial E'0.0 Tricuspid Valve TR Peak Djnltcyw899rw/sTR Peak Gr.48wxTrWIGV99woQq <Conclusion> normal size la,lv & ra rv. normal lv wall motion,thickness & systolic function with lvef of 60-65%. lv diastolic dysfunciton grade one. normal aortic,mitral,tv 7 pv. trace mr,mild tr & pi with upper normal pulmonary systolic pressures of 35 mm of hg. no pericardial effusion. normal size aortic root & ivc. atrial septum is aneurysmal but no shunt seen.
--- NOTE | 2017-06-13 19:59 | CARD ---
APPROVED REPORT Protocol: LEXISCAN Test Type: LEXISCAN STRESS Test Indications: CP Target HR: 145 bpm Resting ECG: normal Resting Heart Rate: 73 bpm Resting Blood Pressure: 128/80mmHg submaximum (85%): 123 bpm TEST SUMMARY RNJOIXJVPUUWQC44:02..1.062/.0. PREINFSNHYPERV.05:[id number]/80.0. INFUSIONDOSE 100:[id number]/80.0. KALPVMFNM79:[id number]/80.0. PROCEDURE Pharmacologic stress testing was performed using 0.4mg per 5ml of regadenoson given intravenously over 7-10 seconds. Reversal agent aminophyline 125 mg, given intravenously for Headache. POST EXERCISE Reason for Termination: Protocol Completed Target HR: No Max HR: 80 bpm 80% of Maximum Predicted HR: 145 bpm Exercise duration: 00:30 min:sec, 0 Stage Exercise capacity: 1.0METs Max Blood Pressure: 130/80mmHg Blood Pressure response to exercise: normal resting BP - appropriate response Heart Rate response to exercise: appropriate Chest Pain: No, none Angina index: 0 Arrhythmia: No, none ST Change: No, none Deviation: 0 mm INTERPRETATION Stress EKG Conclusion: NEGATIVE LEXISCAN STRESS TEST NORMAL BP RESPONSE TO LEXISCAN NUCLEAR STUDIES TO BE READ SEPARATELY EXAM: Myocardial Perfusion REST/STRESS Imaging Protocol The imaging protocol used to acquire images was Rest Tc-99m/stress Tc-99m 1 day Rest Spect myocardial perfusion imaging was performed in supine position 40 minutes following the injection of 13.2 mCi of Tc-99 Myoview. Gated Stress Spect was performed 41 minutes after intravenous 33 mCi Tc-99 Myoview injection. The images were gated to evaluate regional wall motion and calculate ventricular ejection fraction.Images were reconstructed using backfilter projection method in short horizontal and verticle long axis. Spect slices were generated. RESTING DATA EDV41.57neZY3.10L/min ESV6.00mlMyocardial Mass84.00g Av. Heart Rate61.00bpm EF85.00% STRESS DATA EDV43.32vsVS4.30L/min ESV8.00mlMyocardial Mass87.00g EF81.00% Regional WT score at stress:1.00 Regional WM score at stress:0.00 Summed WT score at stress:5.00 Av. Heart Rate68.00bpmSummed WM score at stress:0.00 LV Perf. Quant 17 Seg. SSS0.00 17 Seg. SRS0.00 17 Seg. SDS0.00 Stress Defect Extent (% LAD)0.00Rest Defect Extent (% LAD)0.00Rev. Defect Extent (% LAD)0.00 Stress Defect Extent (% LCX)0.00Rest Defect Extent (% LCX)0.00Rev. Defect Extent (% LCX)0.00 Stress Defect Extent (% RCA)0.00Rest Defect Extent (% RCA)0.00Rev. Defect Extent (% RCA)0.00 Stress Defect Extent (% KULWINDER)0.00Rest Defect Extent (% KULWINDER)0.00Rev. Defect Extent (% KULWINDER)0.00 IMPRESSION Normal Myocardial Perfusion exercise stress study Left Ventricle LV Size/Shape: The left ventricle is normal size. LV Function:Left ventricle systolic function is normal. The Ejection Fraction is >70%. Regional Wall Motion:There is normal left ventricular wall motion. Metabolism/Perfusion Defects: There is no scan evidence of reversible ischemia noted. Conclusion 1. There is no scan evidence of reversible ischemia noted. 2. Left ventricle systolic function is normal. 3. The Ejection Fraction is >70%.
== END 2017-06-10 17:45 | disposition home or self-care (01) ==
LOC: C.ER 10:21 → C.9E 14:15 → C.5S 20:40
PROVIDERS: ADMIT Hospitalist; ATTEND Hospitalist
DX: I16.0 Hypertensive urgency (principal); E78.5 Hyperlipidemia, unspecified; E11.9 Type 2 diabetes mellitus without complications
CPT/HCPCS: 36415; 70450; 71010; 78452; 80053; 80061; 82948; 83735; 84100; 84484; 85025; 85610; 85730; 90471; 90674; 90732; 93005; 93017; 93306; 96372; 97162; 99285; A9502; G0378; G8978; G8979; J0280; J1644; J2785

== ENCOUNTER 2017-12-18 11:57 | Emergency (ER) | payer OTHER ==
[2017-12-18 11:57] VITALS: BMI 24.7
[2017-12-18 12:07] VITALS: RESP 18; O2SAT 99
[2017-12-18 12:35] LABS: BASO % 1.1 % (0.0-2.0); HEMOGLOBIN 11.7 g/dL (11.0-16.0); LYMPH # 2.4 K/uL (1.0-4.3); LYMPH % 53.9 % (20.0-40.0); MEAN CELL VOLUME 85.3 fL (81.0-99.0); MEAN CORPUSCULAR HEMOGLOBIN 28.4 pg (27.0-31.0); MEAN CORPUSCULAR HGB CONC 33.3 g/dL (33.0-37.0); MEAN PLATELET VOLUME 8.2 fL (7.2-11.7); MONO # 0.6 K/uL (0.0-0.8); MONO % 14.1 % (0.0-10.0); NEUT # 1.4 K/uL (1.8-7.0); NEUT % 30.9 % (50.0-75.0); NRBC % 0.1 % (0.0-2.0); RBC 4.13 Mil/uL (3.80-5.20); RED CELL DISTRIBUTION WIDTH 14.9 % (11.5-14.5); WHITE BLOOD COUNT 4.5 K/uL (4.8-10.8)
[2017-12-18 12:40] LABS: CALCIUM 8.8 mg/dl (8.6-10.4); GFR AFRICAN-AMERICAN > 60; GFR NON-AFRICAN AMERICAN > 60; LIPASE 81 U/L (23-300)
[2017-12-18 12:45] LABS: ALB/GLOB RATIO 1.1 (1.0-2.1); ALBUMIN 4.5 g/dL (3.5-5.0); ALT/SGPT 14 U/L (9-52); AST/SGOT 34 U/L (14-36); BLOOD UREA NITROGEN 16 mg/dL (7-17)
[2017-12-18] MEDS ORDERED: Iodixanol 320 MG/ML 100 ML BOTTLE IV ONE (13:25)
[2017-12-18 14:02] LABS: SQUAMOUS EPITHIAL 1 /hpf (0-5); URINE BILIRUBIN NEGATIVE (NEGATIVE); URINE BLOOD 1+ (NEGATIVE); URINE CLARITY Clear (Clear); URINE COLOR Straw (YELLOW); URINE GLUCOSE (UA) NORMAL (Normal); URINE LEUKOCYTE ESTERASE NEG Leu/uL (Negative); URINE PROTEIN NEGATIVE (NEGATIVE); URINE UROBILINOGEN NORMAL mg/dL (0.2-1.0)
--- NOTE | 2017-12-18 15:42 | CT ---
PROCEDURE: CT Abdomen and Pelvis with contrast HISTORY: RLQ tenderness COMPARISON: Report from prior abdomen pelvis CT examination 02/23/2015. TECHNIQUE: Contrast dose: Visipaque 320, 100 cc Radiation dose: Total exam DLP = 284.61 mGy-cm. This CT exam was performed using one or more of the following dose reduction techniques: Automated exposure control, adjustment of the mA and/or kV according to patient size, and/or use of iterative reconstruction technique. FINDINGS: LOWER THORAX: Unremarkable. LIVER: Unremarkable. No gross lesion or ductal dilatation. GALLBLADDER AND BILE DUCTS: Unremarkable. PANCREAS: Unremarkable. No gross lesion or ductal dilatation. SPLEEN: Unremarkable. ADRENALS: Unremarkable. No mass. KIDNEYS AND URETERS: Unremarkable. No hydronephrosis. No solid mass. VASCULATURE: Unremarkable. No aortic aneurysm. BOWEL: Unremarkable. No obstruction. No gross mural thickening. There is extensive sigmoid diverticulosis without diverticulitis. APPENDIX: Normal appendix. PERITONEUM: Unremarkable. No free fluid. No free air. LYMPH NODES: Unremarkable. No enlarged lymph nodes. BLADDER: Unremarkable. REPRODUCTIVE: Prior hysterectomy evident. BONES: No acute fracture. OTHER FINDINGS: Tiny umbilical hernia contains only mesenteric fat but no bowel. IMPRESSION: 1. No definitive acute abdominal findings including the appendix. 2. Extensive sigmoid diverticulosis without diverticulitis evident. 3. Prior hysterectomy. No suspicious adnexal findings bilaterally.
--- NOTE | 2017-12-18 15:52 | C.PDOC ---
History Of Present Illness 77 y/o female presents to ED sent by Clinic for RLQ pain for 5 days associated with mild nausea. Patient reports normal po intake and denies vomiting, hematuria, blood in stool, dysuria or any other complaints at this time. Chief Complaint (Nursing): Abdominal Pain History Per: Patient History/Exam Limitations: no limitations Onset/Duration Of Symptoms: Days Current Symptoms Are (Timing): Still Present Location Of Pain/Discomfort: RLQ Past Medical History Reviewed: Historical Data, Nursing Documentation, Vital Signs Vital Signs: Last Vital Signs Temp 97.7 F 12/18/17 16:13 Pulse 67 12/18/17 16:13 Resp 18 12/18/17 16:13 BP 125/69 12/18/17 16:13 Pulse Ox 99 12/18/17 16:13 - Medical History PMH: Arthritis, Gastritis, HTN Surgical History: No Surg Hx Family History: States: No Known Family Hx - Social History Hx Tobacco Use: No Hx Alcohol Use: No Hx Substance Use: No - Immunization History Hx Tetanus Toxoid Vaccination: No Hx Influenza Vaccination: Yes Hx Pneumococcal Vaccination: No Review Of Systems Constitutional: Negative for: Fever, Chills Gastrointestinal: Positive for: Nausea, Abdominal Pain. Negative for: Vomiting , Diarrhea Genitourinary: Negative for: Dysuria, Hematuria Physical Exam - Physical Exam Appears: Non-toxic, No Acute Distress Skin: Normal Color, Warm, Dry, No Rash Head: Atraumatic, Normacephalic Oral Mucosa: Moist Neck: Normal ROM, Supple Cardiovascular: Rhythm Regular Respiratory: Normal Breath Sounds, No Rales, No Rhonchi, No Wheezing Gastrointestinal/Abdominal: Soft, Tenderness (RLQ), No Guarding, No Rebound Back: No CVA Tenderness Extremity: Normal ROM, Capillary Refill (<2 seconds) Neurological/Psych: Oriented x3, Normal Speech ED Course And Treatment - Laboratory Results Result Diagrams: 12/18/17 12:19 12/18/17 12:19 O2 Sat by Pulse Oximetry: 99 (RA) Pulse Ox Interpretation: Normal Disposition - Disposition Referrals: Change Lead Service [Outside] [facility] [Outside] Disposition: HOME/ ROUTINE Disposition Time: 15:40 Condition: GOOD Additional Instructions: Thank you for letting us take care of you today. The emergency medical care you received today was directed at your acute symptoms. If you were prescribed any medication, please fill it and take as directed. It may take several days for your symptoms to resolve. Return to the Emergency Department if your symptoms worsen, do not improve, or if you have any other problems. Please contact your doctor or call one of the physicians/clinics you have been referred to that are listed on the Patient Visit Information form that is included in your discharge packet. Bring any paperwork you were given at discharge with you along with any medications you are taking to your follow up visit. Our treatment cannot replace ongoing medical care by a primary care provider (PCP) outside of the emergency department. Thank you for allowing the [facility] team to be part of your care today. Take all your medication as prescribed everyday. Follow up with the clinic in 2-3 days for re-evaluation and further management. Dale por dejarnos atenderlo hoy. La atencin mdica de emergencia que recibi hoy estaba dirigida a tahmina sntomas agudos. Si le prescribieron algn medicamento, llnelo y tome segn las indicaciones. Tahmina sntomas pueden tardar varios ramirez en resolverse. Regrese al Departamento de Emergencia si tahmina s ntomas empeoran, no mejoran o si tiene algn otro problema. Comunquese con vitale mdico o llame a jess de los mdicos / clnicas a los que morillo sido referido que figura en el formulario de Informacin de visita del paciente que se incluye en vitale paquete de odette. Traiga todos los documentos que recibi al momento del odette junto con los medicamentos que est tomando en vitale visita de seguimiento. Nuestro tratamiento no puede reemplazar la atencin mdica en curso por parte de un proveedor de atencin primaria (PCP) fuera del departamento de emergencias. Dale por permitir que el equipo de [facility] sea parte de vitale cuidado hoy. [place] todos tahmina medicamentos segn lo prescrito todos los ramirez. Denisse un seguimiento con la clnica en 2-3 ramirez para muriel nueva evaluacin y ms administracin. Instructions: Acute Abdomen (Belly Pain), Adult (DC) Forms: [email or web address] (Omani) Print Language: DIVEHI - Clinical Impression Clinical Impression: Abdominal pain - Scribe Statement The provider has reviewed the documentation as recorded by the Scribe Steffanie Rahman All medical record entries made by the Scribe were at my direction and personally dictated by me. I have reviewed the chart and agree that the record accurately reflects my personal performance of the history, physical exam, medical decision making, and the department course for this patient. I have also personally directed, reviewed, and agree with the discharge instructions and disposition.
[2017-12-18 16:14] VITALS: BP 125/69; PULSE 67; TEMP 97.7
== END 2017-12-18 16:16 | disposition home or self-care (01) ==
LOC: C.ER 11:57
DX: R10.9 Unspecified abdominal pain (principal); I10 Essential (primary) hypertension
CPT/HCPCS: 74177; 80053; 81001; 83690; 85025; 87086; 99284; Q9967

== ENCOUNTER 2018-09-12 16:59 | Emergency (ER) | payer MEDICAID, SELFPAY ==
[2018-09-12 16:59] VITALS: BMI 23.2
[2018-09-12 17:14] VITALS: TEMP 98
[2018-09-12 18:28] LABS: BASO % 0.6 % (0.0-2.0); EOS % 0.2 % (0.0-4.0); LYMPH # 1.9 K/uL (1.0-4.3); LYMPH % 55.9 % (20.0-40.0); MEAN CELL VOLUME 86.9 fL (81.0-99.0); MEAN CORPUSCULAR HEMOGLOBIN 28.1 pg (27.0-31.0); MEAN CORPUSCULAR HGB CONC 32.4 g/dL (33.0-37.0); MEAN PLATELET VOLUME 7.3 fL (7.2-11.7); MONO # 0.5 K/uL (0.0-0.8); MONO % 15.5 % (0.0-10.0); NEUT # 0.9 K/uL (1.8-7.0); NEUT % 27.8 % (50.0-75.0); RBC 3.92 Mil/uL (3.80-5.20); RED CELL DISTRIBUTION WIDTH 14.7 % (11.5-14.5); WHITE BLOOD COUNT 3.3 K/uL (4.8-10.8)
[2018-09-12 18:40] LABS: ALB/GLOB RATIO 1.5 (1.0-2.1); ALBUMIN 4.7 g/dL (3.5-5.0); ALT/SGPT 33 U/L (9-52); AST/SGOT 29 U/L (14-36); BLOOD UREA NITROGEN 22 mg/dL (7-17); CALCIUM 9.5 mg/dl (8.6-10.4); GFR NON-AFRICAN AMERICAN > 60; LIPASE 78 U/L (23-300)
--- NOTE | 2018-09-12 18:54 | C.PDOC ---
History Of Present Illness 78 y/o female comes in to ED stating that shes had right-sided abdominal pain for the past 2 days but denies fever, nausea, vomiting, dysuria, or hematuria. Patient has no other symptoms. Patient states that she had similar pain a week ago that went away on its own so she did not seek medical care. Time Seen by Provider: 09/12/18 17:57 Chief Complaint (Nursing): Abdominal Pain History Per: Patient History/Exam Limitations: no limitations Onset/Duration Of Symptoms: Days Current Symptoms Are (Timing): Still Present Past Medical History Reviewed: Historical Data, Nursing Documentation, Vital Signs Vital Signs: Last Vital Signs Temp 98 F 09/12/18 17:12 Pulse 78 09/12/18 17:12 Resp 20 09/12/18 17:12 BP 118/67 09/12/18 17:12 Pulse Ox 99 09/12/18 17:12 - Medical History PMH: Arthritis, Gastritis, HTN Denies: Chronic Kidney Disease Family History: States: No Known Family Hx - Social History Hx Tobacco Use: No Hx Alcohol Use: No Hx Substance Use: No - Immunization History Hx Tetanus Toxoid Vaccination: No Hx Influenza Vaccination: Yes Hx Pneumococcal Vaccination: No Review Of Systems Constitutional: Negative for: Fever Cardiovascular: Negative for: Chest Pain Respiratory: Negative for: Shortness of Breath Gastrointestinal: Positive for: Abdominal Pain (right-sided). Negative for: Nausea, Vomiting Genitourinary: Negative for: Dysuria, Hematuria Physical Exam - Physical Exam Appears: Non-toxic, No Acute Distress Skin: Warm, Dry Head: Atraumatic, Normacephalic Eye(s): bilateral: Normal Inspection, PERRL, EOMI Oral Mucosa: Moist Neck: Supple Chest: Symmetrical Cardiovascular: Rhythm Regular, No Murmur Respiratory: Normal Breath Sounds, No Rales, No Rhonchi, No Wheezing Gastrointestinal/Abdominal: Tenderness (right periumbilical tenderness), Other (Right flank tenderness) Extremity: Left: Atraumatic, Normal Color And Temperature, Normal ROM Neurological/Psych: Oriented x3, Normal Speech ED Course And Treatment - Laboratory Results Result Diagrams: 09/12/18 18:24 09/12/18 18:24 O2 Sat by Pulse Oximetry: 99 (RA) Pulse Ox Interpretation: Normal - CT Scan/US Abd/pelvis Other Rad Studies (CT/US): Read By Radiologist CT/US Interpretation: IMPRESSION: There is diffuse diverticulosis noted involving descending and sigmoid colon. No evidence of acute diverticulitis. Medical Decision Making Medical Decision Making: Plan: --Bloodwork --UA --Tylenol PO Patient reports improvement with tylenol. Bloodwork and CT results reviewed, scan showed diverticulosis. Results discussed with patient. She states that she already knew that she had diverticulosis, and the pain is similar, but she came here to make sure there wasn't anything else going on. Advised continuing to take tylenol for pain. She had been cutting the 500mg tabs in half, so that she was only taking 250mg per dose. Advised her that she can take a full tab or even two tabs q6h. Patient advised to return to the ED for any new or worsening symptoms. Disposition - Disposition Disposition: HOME/ ROUTINE Disposition Time: 21:29 Condition: GOOD Additional Instructions: ERNIE CASANOVA, thank you for letting us take care of you today. Your provider was Arianna Saravia MD and you were treated for RT SIDE LOWER ABD PAIN. The emergency medical care you received today was directed at your acute symptoms. If you were prescribed any medication, please fill it and take as directed. It may take several days for your symptoms to resolve. Return to the Emergency Department if your symptoms worsen, do not improve, or if you have any other problems. Please contact your doctor or call one of the physicians/clinics you have been referred to that are listed on the Patient Visit Information form that is included in your discharge packet. Bring any paperwork you were given at discharge with you along with any medications you are taking to your follow up visit. Our treatment cannot replace ongoing medical care by a primary care dick garcia outside of the emergency department. Thank you for allowing the [facility] team to be part of your care today. If you had an X-Ray or CT scan: A Radiologist will review the ED reading if any change in treatment is needed we will contact you. If you had a blood, urine, or wound culture: It will take several days for the results, if any change in treatment is needed we will contact you. If you had an STI test: It will take 48 hours for the results. Please call after 1 week if you have not heard back. Instructions: Diverticulosis (DC) Forms: Gen Discharge Inst Citizen Of [place], [facility] (Swedish), [facility] (Citizen Of [place]) Print Language: JAPANESE - Clinical Impression Clinical Impression: Diverticulosis - Scribe Statement The provider has reviewed the documentation as recorded by the Francoiseibmarc Watters Provider Attestation: All medical record entries made by the Francoiseibe were at my direction and personally dictated by me. I have reviewed the chart and agree that the record accurately reflects my personal performance of the history, physical exam, medical decision making, and the department course for this patient. I have also personally directed, reviewed, and agree with the discharge instructions and disposition.
[2018-09-12 19:20] LABS: URINE BACTERIA RARE (<OCC); URINE BILIRUBIN NEGATIVE (NEGATIVE); URINE BLOOD NEGATIVE (NEGATIVE); URINE CLARITY Clear (Clear); URINE COLOR Yellow (YELLOW); URINE GLUCOSE (UA) NORMAL (Normal); URINE LEUKOCYTE ESTERASE NEG Leu/uL (Negative); URINE PROTEIN NEGATIVE (NEGATIVE); URINE UROBILINOGEN NORMAL mg/dL (0.2-1.0)
[2018-09-12] MEDS ORDERED: Iodixanol 320 MG/ML 100 ML BOTTLE IV ONE (19:55)
[2018-09-12 21:00] VITALS: BP 135/58; PULSE 77; RESP 16
[2018-09-12 23:56] VITALS: O2SAT 99
--- NOTE | 2018-09-13 15:09 | CT ---
Date of service: 09/12/2018 PROCEDURE: CT Abdomen and Pelvis with contrast HISTORY: abdominal pain COMPARISON: CT abdomen and pelvis with IV 12/18/17 TECHNIQUE: Contrast dose: 100 mL Visipaque 320 IV Radiation dose: Total exam DLP = 468.63 mGy-cm. This CT exam was performed using one or more of the following dose reduction techniques: Automated exposure control, adjustment of the mA and/or kV according to patient size, and/or use of iterative reconstruction technique. FINDINGS: LOWER THORAX: No visible consolidation, pleural effusion, or pneumothorax. LIVER: Unremarkable. GALLBLADDER AND BILE DUCTS: Unremarkable. PANCREAS: Unremarkable. SPLEEN: Unremarkable. ADRENALS: Unremarkable. KIDNEYS AND URETERS: The kidneys enhance symmetrically. No hydronephrosis or obstructing calculus identified. VASCULATURE: No aortic aneurysm. Atherosclerotic calcifications the aorta. BOWEL: Stomach is nondistended. Gastric wall appears thickened. Lack of oral contrast limits evaluation for bowel pathology. Bowel loops appear within normal limits of caliber without evidence of obstruction. APPENDIX: The appendix appears within normal limits of caliber. No secondary signs of acute appendicitis. PERITONEUM: No significant free fluid. No definite free air. LYMPH NODES: No bulky adenopathy identified. BLADDER: Mild urinary bladder wall thickening. REPRODUCTIVE: The uterus is present. BONES: No acute osseous abnormality is detected. OTHER FINDINGS: None. IMPRESSION: Diverticulosis without CT evidence of acute diverticulitis. Gastric wall thickening. Correlate for gastritis. Mild urinary bladder wall thickening. Recommend correlate clinically including urinalysis if indicated. Preliminary impression was provided by [employer]. Study marked for PA review.
== END 2018-09-12 21:29 | disposition home or self-care (01) ==
LOC: C.ER 16:59
DX: K57.30 Diverticulosis of large intestine without perforation or abscess without bleeding (principal)
CPT/HCPCS: 74177; 80053; 81001; 83690; 85025; 99285; Q9967